=== PATIENT | female | born 1945 | race Caucasian/White ===

== ENCOUNTER 2017-12-17 09:05 | Emergency (ER) | payer OTHER ==
[~2017-12-17] VITALS: Ht 160 cm; Wt 56.7 kg
[~2017-12-17 09:05] MED LIST: AMLO5TAB PO; CARI350T PO; CIPR500T9 PO; IBUP-2213 PO; LOVA20TA8 PO; MECL25TA PO; METO-50 PO; PHEN100C3 PO; PROC10TA41 PO; VIC PO; [UNRECOGNIZED DRUG - REMARK]
[2017-12-17 09:07] VITALS: BP 142/64
--- NOTE | 2017-12-17 09:13 | NUR ---
PT AMBULATES TO BED 11
--- NOTE | 2017-12-17 09:15 | NUR ---
PATIENT PRESENTS TO ED WITH COMPLAINTS OF RASH AND ITCHING TO LEFT LOWER LEG. PATIENT STATES SHE WAS BIT BY A BUG AND CANT STAND THE ITCHING. DENIES N/V/D; SKIN IS PINK/WARM/DRY; AAOX4 WITH EVEN AND STEADY GAIT; LUNGS CLEAR BL; HR EVEN AND REGULAR; PT DENIES ANY FEVER, CP, SOB, OR COUGH AT THIS TIME; PATIENT STATES PAIN OF 0/10 AT THIS TIME; VSS; PATIENT POSITIONED FOR COMFORT; HOB ELEVATED; BEDRAILS UP X1; BED DOWN. ER MD MADE AWARE OF PT STATUS.
--- NOTE | 2017-12-17 09:41 | NUR ---
Patient discharged with v/s stable. Written and verbal after care instructions given and explained. Patient alert, oriented and verbalized understanding of instructions. Ambulatory with steady gait. All questions addressed prior to discharge. ID band removed. Patient advised to follow up with PMD. Rx of BACITRACIN AND CLARITIN given. Patient educated on indication of medication including possible reaction and side effects. Opportunity to ask questions provided and answered.
[2017-12-17 09:47] VITALS: BP 142/64
== END 2017-12-17 09:41 | disposition home or self-care (01) ==
LOC: MED 09:05
DX: L03.115 Cellulitis of right lower limb (principal); I10 Essential (primary) hypertension; Z90.89 Acquired absence of other organs; Z95.1 Presence of aortocoronary bypass graft; Z87.891 Personal history of nicotine dependence; Z79.2 Long term (current) use of antibiotics; Z79.1 Long term (current) use of non-steroidal anti-inflammatories (NSAID)
CPT/HCPCS: 99282; 99283

== ENCOUNTER 2017-12-18 08:18 | Emergency (ER) | payer OTHER ==
[~2017-12-18] VITALS: Ht 157.5 cm; Wt 56.2 kg
[2017-12-18 08:24] VITALS: BP 113/64
--- NOTE | 2017-12-18 08:28 | NUR ---
PT AMBULATED TO ER BED 12.
--- NOTE | 2017-12-18 08:36 | NUR ---
72/F PRESENT TO ER C/O POSSIBLE BUG BITE ON RITE LOWER LEG x 3 DAYS AGO. PT DID NOT WITNESS THE BUG BITE. PT STATES SHE WAS SEEN AT [facility] FOR SAME S/SX YESTERDAY. HX: PACEMAKER, HIP SURGERY 30 YEARS AGO, HTN
[2017-12-18] MEDS ORDERED: BACITRACIN OINT 500 UNITS/GM PKT TP ONE ×2 (08:55→09:02)
[2017-12-18 09:04] VITALS: BP 120/69
== END 2017-12-18 08:36 | disposition home or self-care (01) ==
LOC: MED 08:18
DX: L03.115 Cellulitis of right lower limb (principal); I10 Essential (primary) hypertension; Z90.89 Acquired absence of other organs; Z95.0 Presence of cardiac pacemaker; Z79.2 Long term (current) use of antibiotics; Z79.899 Other long term (current) drug therapy
CPT/HCPCS: 99282